=== PATIENT | female | born 1980 | race Caucasian/White ===

== ENCOUNTER 2019-08-18 09:30 | Emergency (ER) | payer OTHER ==
[~2019-08-18] VITALS: Ht 180.3 cm; Wt 69.8 kg
[~2019-08-18 09:30] MED LIST: ACETAMINOP160 MG/5 M; ALEVE220 MG PO; CLEOCIN HCL300 MG PO; PERCOCET 5-3251 EACH PO
[2019-08-18] MEDS ORDERED: FLEXERIL PO (10:10)
[2019-08-18] MEDS ORDERED: PREDNISONE 20 M20 M1 PO (10:10)
[2019-08-18] MEDS ORDERED: NORCO 5-325 TA1 EAC2 PO (10:10)
[2019-08-18 10:13] VITALS: BP 129/105
== END 2019-08-18 10:15 | disposition home or self-care (01) ==
LOC: M.ERS 09:30
DX: S39.012A Strain of muscle, fascia and tendon of lower back, initial encounter (principal); J45.909 Unspecified asthma, uncomplicated; F17.210 Nicotine dependence, cigarettes, uncomplicated; Z98.51 Tubal ligation status; Z88.0 Allergy status to penicillin; X50.9XXA Other and unspecified overexertion or strenuous movements or postures, initial encounter; Y93.89 Activity, other specified; Y92.89 Other specified places as the place of occurrence of the external cause; Y99.8 Other external cause status